=== PATIENT | female | born 1950 | race Caucasian/White ===

== ENCOUNTER 2018-09-16 18:51 | Inpatient (IN) | payer MEDICARE, OTHER ==
[2018-09-16 19:31] LABS: ADD MAN DIFF? NO
[2018-09-16 19:35] LABS: BASOPHIL # 0.1 10^3/ul (0.0-0.1); BASOPHILS % 0.6 % (0.0-2.0); EOSINOPHILS # 0.2 10^3/ul (0.0-0.5); EOSINOPHILS % 2.4 % (0.0-7.0); HEMATOCRIT 46.7 % (37.0-47.0); HEMOGLOBIN 15.8 g/dl (12.0-16.0); LYMPHOCYTES # 3.1 10^3/ul (0.8-2.9); LYMPHOCYTES % 39.6 % (15.0-51.0); MEAN CORPUSCULAR HEMOGLOBIN 32.4 pg (29.0-33.0); MEAN CORPUSCULAR HGB CONC 33.8 g/dl (32.0-37.0); MEAN CORPUSCULAR VOLUME 95.7 fl (82.0-101.0); MEAN PLATELET VOLUME 9.5 fl (7.4-10.4); MONOCYTE # 0.7 10^3/ul (0.3-0.9); MONOCYTES % 8.4 % (0.0-11.0); NEUTROPHIL # 3.8 10^3/ul (1.6-7.5); NEUTROPHILS % 48.7 % (39.0-77.0); PLATELET COUNT 291 10^3/UL (140-415); RED BLOOD COUNT 4.88 10^6/ul (4.20-5.40); RED CELL DISTRIBUTION WIDTH 12.2 % (11.5-14.5)
[2018-09-16 19:35] LABS: WHITE BLOOD COUNT 7.9 10^3/ul (4.8-10.8)
[2018-09-16 19:51] LABS: ANION GAP 12 (5-13); BLOOD UREA NITROGEN 17 mg/dl (7-20); CALCIUM 9.9 mg/dl (8.4-10.2); CARBON DIOXIDE 26 mmol/L (21-31); CHLORIDE 106 mmol/L (97-110); CREATININE 0.81 mg/dl (0.44-1.00); Estimated GFR > 60 mL/min (>60); GLUCOSE 90 mg/dl (70-220); SODIUM 144 mmol/L (135-144)
[2018-09-16 20:05] LABS: TROPONIN-I < 0.012 ng/ml (0.000-0.120)
[2018-09-16] MEDS: AMIODARONE 150MG/D5W BOLUS IV* (20:10)
[2018-09-16] MEDS ORDERED: LORAZEPAM 2 MG INJ (20:23)
[2018-09-16] MEDS ORDERED: AMIODARONE 200 ML IV (20:30)
[2018-09-16] MEDS: LORAZEPAM 2 MG INJ IV (21:11)
[2018-09-16] MEDS: AMIODARONE 200 ML IV (21:13)
[2018-09-16] MEDS ORDERED: ACETAMINOPHEN 325 MG TAB PO ×2 (21:30→22:30)
[2018-09-16] MEDS ORDERED: ONDANSETRON 4 MG INJ IV ×2 (21:30→22:30)
[2018-09-16] MEDS: ASPIRIN 81 MG TAB PO (21:38)
[2018-09-16] MEDS ORDERED: NITROGLYCERIN (SL) 0.4 MG TAB SL (22:30)
[2018-09-16] MEDS ORDERED: NACL 0.9% 3 ML SYG IV (22:30)
[2018-09-17] MEDS: AMIODARONE 200 ML IV ×2 (02:30→14:23)
[2018-09-17 06:21] LABS: ADD MAN DIFF? NO
[2018-09-17 06:39] LABS: WHITE BLOOD COUNT 6.2 10^3/ul (4.8-10.8)
[2018-09-17 06:39] LABS: BASOPHILS % 0.5 % (0.0-2.0); EOSINOPHILS # 0.2 10^3/ul (0.0-0.5); EOSINOPHILS % 3.1 % (0.0-7.0); HEMATOCRIT 39.5 % (37.0-47.0); HEMOGLOBIN 13.4 g/dl (12.0-16.0); LYMPHOCYTES # 2.7 10^3/ul (0.8-2.9); LYMPHOCYTES % 43.2 % (15.0-51.0); MEAN CORPUSCULAR HEMOGLOBIN 32.4 pg (29.0-33.0); MEAN CORPUSCULAR HGB CONC 33.9 g/dl (32.0-37.0); MEAN CORPUSCULAR VOLUME 95.4 fl (82.0-101.0); MEAN PLATELET VOLUME 9.5 fl (7.4-10.4); MONOCYTE # 0.6 10^3/ul (0.3-0.9); MONOCYTES % 8.9 % (0.0-11.0); NEUTROPHIL # 2.7 10^3/ul (1.6-7.5); PLATELET COUNT 240 10^3/UL (140-415); RED BLOOD COUNT 4.14 10^6/ul (4.20-5.40); RED CELL DISTRIBUTION WIDTH 12.3 % (11.5-14.5)
[2018-09-17 06:50] LABS: ALANINE AMINOTRANSFERASE 22 IU/L (13-69); ALBUMIN 3.6 g/dl (3.3-4.9); ALBUMIN/GLOBULIN RATIO 1.28; ALKALINE PHOSPHATASE 54 IU/L (42-121); ANION GAP 9 (5-13); ASPARTATE AMINO TRANSFERASE 19 IU/L (15-46); BILIRUBIN,INDIRECT 0.2 mg/dl (0-1.1); BILIRUBIN,TOTAL 0.2 mg/dl (0.2-1.3); BLOOD UREA NITROGEN 15 mg/dl (7-20); CARBON DIOXIDE 26 mmol/L (21-31); CHLORIDE 108 mmol/L (97-110); CHOL/HDL RATIO 4.3 RATIO; CHOLESTEROL 178 mg/dl (100-200); CREATININE 0.81 mg/dl (0.44-1.00); Estimated GFR > 60 mL/min (>60); GLUCOSE 100 mg/dl (70-220); HDL CHOLESTEROL 41 mg/dl (33-92); LDL CHOLESTEROL,CALCULATED 113 mg/dl; MAGNESIUM 2.2 mg/dl (1.7-2.5); POTASSIUM 4.2 mmol/L (3.5-5.1); SODIUM 143 mmol/L (135-144); TOTAL PROTEIN 6.4 g/dl (6.1-8.1); TRIGLYCERIDES 120 mg/dl (0-149)
[2018-09-17 07:02] LABS: HEMOGLOBIN A1C 5.6 % (0-5.9)
[2018-09-17] MEDS: METOPROLOL 25 MG TAB PO (08:22)
[2018-09-17] MEDS: ASPIRIN 81 MG TAB PO (08:23)
[2018-09-17] MEDS: HEPARIN 5,000 UNIT/1 ML VIAL SC (09:09)
[2018-09-17 17:04] LABS: CREATINE KINASE 72 IU/L (23-200)
[2018-09-17 17:17] LABS: CK INDEX 1.2; CK-MB 0.84 ng/ml (0.0-2.4); TROPONIN-I < 0.012 ng/ml (0.000-0.120)
[2018-09-17] MEDS ORDERED: APIXABAN 5 MG TABLET PO (21:00)
[2018-09-17] MEDS ORDERED: METOPROLOL 25 MG TAB PO (21:00)
== END 2018-09-17 17:40 | disposition home or self-care (01) | DRG 310 ==
LOC: E/R 18:51 → TEL 21:44
DX: I48.0 Paroxysmal atrial fibrillation (principal); R07.89 Other chest pain; E66.9 Obesity, unspecified; Z68.38 Body mass index [BMI] 38.0-38.9, adult; I48.92 Unspecified atrial flutter
CPT/HCPCS: 36415; 71045; 80048; 80053; 80061; 82550; 82553; 83036; 83735; 84443; 84484; 85025; 93005; 93306; 93970; 96374; 96375; 99291-25